=== PATIENT | female | born 1965 | race Caucasian/White ===

== ENCOUNTER 2021-02-23 13:27 | Outpatient (REF) | payer OTHER, SELFPAY ==
--- NOTE | ~2021-02-23 | US_ITS ---
EXAMINATION: US DIAGNOSTIC ULTRASOUND BREAST, LEFT CLINICAL INFORMATION: Pain beneath the nipple. COMPARISON: Mammography of same day. TECHNIQUE: Ultrasound of the breast is performed with real-time martines scale imaging and color Doppler. FINDINGS: There is no focal suspicious finding. There is no solid mass, architectural abnormality, duct ectasia, or edema in the soft tissue planes. Results are discussed with the patient at time of visit. US/US breast LT limited IMPRESSION: No specific ultrasound findings to suggest malignancy. ASSESSMENT: BI-RADS 1: Negative RECOMMENDATION: Routine annual mammography screening due in 12 months. This patient's information was entered into a reminder system with a target due date for their next mammogram.
--- NOTE | ~2021-02-23 | MM_ITS ---
EXAMINATION: MM DIAGNOSTIC DIGITAL BREAST TOMOSYNTHESIS, bilateral Bilateral targeted breast ultrasound CLINICAL INFORMATION: Bilateral breast pain beneath the nipple The lifetime risk of breast cancer based on the Tyrer-Cuzick Model is 4.5%. COMPARISON: Mammography: August 30, 2018 and studies dating back to May 13, 2009 TECHNIQUE: Digital breast tomosynthesis is performed in both the craniocaudal and mediolateral oblique views along with computer-aided detection (CAD). Synthesized 2D images are generated from the tomosynthesis. Bilateral targeted breast ultrasound FINDINGS: There are scattered areas of fibroglandular density (ACR BI-RADS breast composition Category b). There are no significant masses, abnormal calcifications, or other abnormalities. Bilateral targeted breast ultrasound did not demonstrate any abnormal cystic or solid masses. No region of abnormal distal sound shadowing appreciated. Results are discussed with the patient at time of visit. MM/MM tomosynthesis diagnostic BI IMPRESSION: No specific mammographic or ultrasound findings to suggest malignancy. ASSESSMENT: BI-RADS 1: Negative RECOMMENDATION: Routine annual mammography screening due in 12 months. This patient's information was entered into a reminder system with a target due date for their next mammogram.
--- NOTE | ~2021-02-23 | US_ITS ---
EXAMINATION: US DIAGNOSTIC ULTRASOUND BREAST, RIGHT CLINICAL INFORMATION: Breast pain beneath the nipple. COMPARISON: Mammography of same day. TECHNIQUE: Ultrasound of the breast is performed with real-time martines scale imaging and color Doppler. FINDINGS: There is no focal suspicious finding. There is no solid mass, architectural abnormality, duct ectasia, or edema in the soft tissue planes. Results are discussed with the patient at time of visit. US/US breast RT limited IMPRESSION: No specific ultrasound findings to suggest malignancy. ASSESSMENT: BI-RADS 1: Negative RECOMMENDATION: Routine annual mammography screening due in 12 months. This patient's information was entered into a reminder system with a target due date for their next mammogram.
== END 2021-02-23 13:28 | disposition home or self-care (01) ==
LOC: HO.MAMMO 13:27
PROVIDERS: PCP Internal Medicine; Visit Provider Registered Nurse
DX: N64.4 Mastodynia (principal)
CPT/HCPCS: 76642; 77062; 77066

== ENCOUNTER 2022-02-28 14:41 | Outpatient (REF) | payer OTHER, SELFPAY ==
--- NOTE | ~2022-02-28 | MM_ITS ---
EXAMINATION: MM SCREENING DIGITAL BREAST TOMOSYNTHESIS, BILATERAL CLINICAL INFORMATION: Screening. Asymptomatic. The lifetime risk of breast cancer based on the Tyrer-Cuzick Model is 4.4%. COMPARISON: Mammography: February 23, 2021 and studies dating back to September 18, 2013 TECHNIQUE: Digital breast tomosynthesis is performed in both the craniocaudal and mediolateral oblique views along with computer-aided detection (CAD). Synthesized 2D images are generated from the tomosynthesis. FINDINGS: There are scattered areas of fibroglandular density (ACR BI-RADS breast composition Category b). There are no significant masses, abnormal calcifications, or other abnormalities. MM/MM tomosynthesis screening BI IMPRESSION: No significant changes from prior exam. ASSESSMENT: BI-RADS 1: Negative RECOMMENDATION: Routine annual mammography screening. This patient's information was entered into a reminder system with a target due date for their next mammogram.
== END 2022-02-28 14:42 | disposition home or self-care (01) ==
LOC: HO.MAMMO 14:41
PROVIDERS: PCP Internal Medicine; Visit Provider Registered Nurse
DX: Z12.31 Encounter for screening mammogram for malignant neoplasm of breast (principal)
CPT/HCPCS: 77063; 77067

== ENCOUNTER 2023-03-06 12:33 | Outpatient (REF) | payer OTHER, SELFPAY ==
--- NOTE | ~2023-03-06 | MM_ITS ---
EXAMINATION: MM SCREENING DIGITAL BREAST TOMOSYNTHESIS, BILATERAL CLINICAL INFORMATION: Screening. Asymptomatic. COMPARISON: Mammography: This study is compared with prior exams dating back to 2016. TECHNIQUE: Digital breast tomosynthesis is performed in both the craniocaudal and mediolateral oblique views along with computer-aided detection (CAD). Synthesized 2D images are generated from the tomosynthesis. FINDINGS: There are scattered areas of fibroglandular density (ACR BI-RADS breast composition Category b). There are no significant masses, abnormal calcifications, or other abnormalities. There is a tissue marker present in the right breast from prior benign percutaneous biopsy. MM/MM tomosynthesis screening BI IMPRESSION: No mammographic evidence of malignancy. ASSESSMENT: BI-RADS BI-RADS 2 - Benign Findings RECOMMENDATION: Routine annual mammography screening. 1 year F/U This examination should not preclude the clinical evaluation of a suspicious palpable abnormality. This patient's information was entered into a reminder system with a target due date for their next mammogram.
== END 2023-03-06 12:34 | disposition home or self-care (01) ==
LOC: HO.MAMMO 12:33
PROVIDERS: PCP Internal Medicine; Visit Provider Internal Medicine
DX: Z12.31 Encounter for screening mammogram for malignant neoplasm of breast (principal)
CPT/HCPCS: 77063; 77067

== ENCOUNTER → 2023-03-06 12:45 | Outpatient (BNV) | payer OTHER, SELFPAY | PROVIDERS: PCP Internal Medicine; Visit Provider Radiology Diagnostic Radiology | DX: Z12.31 Encounter for screening mammogram for malignant neoplasm of breast (principal) | CPT/HCPCS: 77063; 77067 ==

== ENCOUNTER 2024-08-19 11:50 | Outpatient (REF) | payer OTHER, SELFPAY ==
--- OUTSIDE RECORDS SUMMARY | 2024-08-19 14:18 | XMS_ITS ---
Author Organization [facility] Address [address] [place] [address] Care Team Providers Care Rapid Outsole Stitcher Name Role Phone Bernard Nichols MD Primary Care Provider Juanis Jones [phone] REASON FOR VISIT cx appt 01/07 Encounters Encounter Location Date Provider Diagnosis [facility] [address] [place] [address] 01/03/2024 Juanis Rojas Plan Of Treatment No Information Progress Notes * Juanita WALKERDOB:[birth year] (58 yo F)Acc No.[id number]:01/03/2024 Patient:?Juanita Walker :1965???Age:58 Y???Sex:Female Address:[address] [place] [address], [place], [address] * true * Date:? Generated for Printi elizabeth/Jessi/eTransmitting on:?08/19/2024 02:18 PM EDT
--- OUTSIDE RECORDS SUMMARY | 2024-08-19 14:19 | XMS_ITS | Clinical Summary ---
Author Organization [facility] Address [address] [place] [address] Care Team Providers Care Mason Apprentice Name Role Phone Unavailable Primary Care Provider Unavailabl e Social History Tobacco Use Types Packs/Day Years Used Date Smoking Tobacco: Never Assessed Sex and Gender Information Value Date Recorded Sex Assigned at Not on file Gender Identity Not on file Sexual Orientation Not on file Plan of Treatment Health Maintenance Due Date Last Done Comments Hepatitis C Screening 1965 COVID-19 Vaccine (#1) 1965 Depression Screening 1975 Preventative Health Evaluation 1981 Cervical Cancer Screening (Pap Smear) 1984 Colon Cancer Screening (Colonoscopy) 2008 Breast Cancer Screening (Mammogram) 2013 Shingrix-Zoster Vaccine (1 o f 2) 2013 DTap / Tdap / Td (2 - Td or Tdap) 08/30/2023 08/29/2013, 04/30/1995 Influenza Vaccine (#1) 2023 02/07/2019 RSV Adult > 60+ Yrs or (1 - 1-dose 75+ series) 2038 Pneumococcal Vaccine Aged Out 02/07/2019 No long er eligible based on patient's age to complete this topic Hepatitis B Vaccines Aged Out No long er eligible based on patient's age to complete this topic RSV Ped < 20 months Aged Out No longe r eligible based on patient's age to complete this topic
--- OUTSIDE RECORDS SUMMARY | 2024-08-19 14:19 | XMS_ITS | Patient Health Record ---
Author Organization [facility] Address [address] [place] [address] Care Team Providers Care Fitter'S Assistant Name Role Phone Bernard Nichols MD Primary Care Provider Juanis Jones Unavailable [phone] Allergies Allergen (clinical drug ingredient) Drug/Non Drug Allergy documented on EMR Reaction Allergy Type Onset Date Status Penicillin hives Drug Allergy Active Reason For Referral No Information Medications Medication SIG (Take, Route, Frequency, Duration) Notes Start Date End Date Status ASO Ankle/Foot Stablizing AFO As directed Wear Daily for as needed 09/04/2023 Active Ozempic Active Therapeutic Multivitamin 1 table 2x day Active Niacin 100 MG 1 tablet with food Orally Once a day Active Physical Therapy . . . 2-3x/week for 3-4 weeks 09/04/2023 Active metFORMIN HCl 1000 MG 1 tablet with a me al Orally Once a day Active Cholecalciferol-Vitamin C 5,000 Unit Active Ezetimibe 10 MG 1 tablet Orally Once a day Active Immunizations Vaccine Route Administration Date Status Comme nts Influenza Unknown 02/09/2023 Administered Social History Tobacco Use: Social History Observation Description Date Details (start date - stop date) Never Smoker NA - NA Tobacco Use/Smoking Question Answer Notes Are you a: nonsmoker Additional Findings: Tobacco Non-User Current no n-smoker Alcohol Screen Question Answer Notes Did you have a drink containing alcohol in the p ast year? Yes Points 0 Interpretation Negative Tobacco use other than smoking: Question Answer Notes Are you an other tobacco user? No Problems Problem Type SNOMED Code ICD Code Onset Dates Problem Status W/U Status Risk Notes Problem [id number] Type 2 diabetes mellitus without complication, without long-term current use of insulin (E11.9) Active confirmed Vital Signs Height 5 ft 0 in in 10/15/2023 Weight 153 lbs 10/15/2023 BMI 29.88 kg/m2 10/15/2023 Encounters Encounter Location Date Provider Diagnosis [address] [address] 09/04/2023 Juanis Perica Pain in left foot M79.672 ; Posterior tibial tendinitis of left lower extremity M76.822 ; Hypertrophy of bone, left ankle and foot M89.372 ; Flat foot [pes planus] (acquired), left foot M21.42 and Type 2 diabetes mellitus without complication, without long-term current use of insulin E11.[address] [address] 10/15/2023 Juanis Perica Pain in left foot M79.672 ; Posterior tibial tendinitis of left lower extremity M76.822 ; Hypertrophy of bone, left ankle and foot M89.372 ; Flat foot [pes planus] (acquired), left foot M21.42 and Type 2 diabetes mellitus without complication, without long-term current use of insulin E11.[address] [address] 01/03/2024 Juanis Rojas Assessments Encounter Date Diagnosis (ICD Code) Assessment Notes Treatment Notes Treatment Clinical Notes Section Notes 09/04/2023 Pain in left foot (ICD-10 - M79.672) 09/04/2023 Posterior tibial tendinitis of left lower extremity (ICD-10 - M76.822) 10/15/2023 Pain in left foot (ICD-10 - M79.672) 10/15/2023 Posterior tibial tendinitis of left lower extremity (ICD-10 - M76.822) 09/04/2023 Hypertrophy of bone, left ankle and foot (ICD-10 - M89.372) 09/04/2023 Flat foot [pes planus] (acquired), left foot (ICD-10 - M21.42) 10/15/2023 Hypertrophy of bone, left ankle and foot (ICD-10 - M89.372) 10/15/2023 Flat foot [pes planus] (acquired), left foot (ICD-10 - M21.42) 09/04/2023 Type 2 diabetes mellitus without complication, without long-term current use of insulin (ICD-10 - E11.9) 10/15/2023 Type 2 diabetes mellitus without complication, without long-term current use of insulin (ICD-10 - E11.9) Plan Of Treatment Pending Test Test Name Order Date X ray : Foot, left 3V 09/04/2023 Insurance Providers Payer Name Payer Address Payer Phone Subscriber Number Group Number Insured Name Patient Relationship to Insured Coverage Start Date Coverage End Date [facility] [id number] [address] [address] [place], [place] [id number] Thuan Walker Spouse - patient is the spouse of the insured Medical (General) History Medical History History ICD Code Back,Hip,and Knee pain CAD (Cholesterol) Diabetic Lyme disease Measles Mumps Chicken pox Joint implants/screws Transfusions Surgical History Surgery Date(Month/Year) hip replacement About 15 yrs
--- OUTSIDE RECORDS SUMMARY | 2024-08-19 14:19 | XMS_ITS ---
Author Organization [facility] Address [address] [place] [address] Care Team Providers Care Tire Man Name Role Phone Simone LINDA, Bernard Primary Care Provider Juanis Jones [phone] Encounters Encounter Location Date Provider Diagnosis [facility] [address] [place] [address] 01/08/2024 Juanis Rojas Plan Of Treatment No Information Progress Notes * DENISE JuanitaDOB:[birth year] (59 yo F)Acc No.[id number]:01/08/2024 Progress Note Patient:Juanita WHITLOCK Provider:?Juanis Rojas DPM :1965???Age:58 Y???Sex:Female D ate:01/08/2024 Address:[address] [place] [address], [place], [place] Pcp:Bernard Nichols MD Subjective: * Chief Complaints: * ??? * Medical History:? Objective: * Vitals:? Assessment: Plan: * Treatment: * Images: * The named appointment provid er may or may not be the originator of this progress note, and it is not deemed complete until electronically signed by the appointment provider. Sign off status: Pending * Provider:?Juanis Rojas DPM Date:?01/2024 Generated for Viviana johnson/Jessi/eTransmitting on:?08/19/2024 02:19 PM EDT
--- OUTSIDE RECORDS SUMMARY | 2024-08-19 14:19 | XMS_ITS ---
Author Organization [facility] Address [address] [place] [address] Care Team Providers Care Chlorine Cells Operator Name Role Phone Simone LINDA, Bernard Primary Care Provider Juanis Jones [phone] REASON FOR VISIT R/S per D 01/07/23 Encounters Encounter Location Date Provider Diagnosis [facility] [address] [place] [address] 01/02/2024 Juanis Rojas Plan Of Treatment No Information Progress Notes * Juanita WALKERDOB:[birth year] (59 yo F)Acc No.[id number]:01/02/2024 Progress Note Patient:?LENNIEKARENYAMILETNORMANTinoam Provider:?Juanis Rojas DPM :1965???Age:58 Y???Sex:Female D ate:01/02/2024 Address:[address] [place] [address], [facility] Pcp:Bernard Nichols MD Subjective: * Chief Complaints: * ???1. R/S per D 01/07/23. * Medical History:? Objective: * Vitals:? Assessment: Plan: * Treatment: * Images: * The named appointment provid er may or may not be the originator of this progress note, and it is not deemed complete until electronically signed by the appointment provider. Sign off status: Pending * Provider:?Juanis Rojas DPM Date:?07/2023 Generated for Viviana johnson/Jessi/Antonette on:?08/19/2024 02:18 PM EDT
== END 2024-08-19 11:51 | disposition home or self-care (01) ==
LOC: HO.MAMMO 11:50
PROVIDERS: PCP Internal Medicine; Visit Provider Internal Medicine
DX: Z12.31 Encounter for screening mammogram for malignant neoplasm of breast (principal)
CPT/HCPCS: 77063; 77067

== ENCOUNTER → 2024-08-19 12:00 | Outpatient (BNV) | payer OTHER, SELFPAY | PROVIDERS: PCP Internal Medicine; Visit Provider Internal Medicine | DX: Z12.31 Encounter for screening mammogram for malignant neoplasm of breast (principal) | CPT/HCPCS: 77063; 77067 ==

== ENCOUNTER 2025-01-20 10:08 | Outpatient (AMB) | payer OTHER, SELFPAY ==
--- OUTSIDE RECORDS SUMMARY | 2024-01-02 10:30 | XMS_ITS ---
Author Organization [facility] Address [address] [place] [address] Care Team Providers Care Manager Psychiatry Name Role Phone Simone LINDA, Bernard Primary Care Provider Juanis Jones [phone] REASON FOR VISIT R/S per D 01/07/23 Encounters Encounter Location Date Provider Diagnosis [address] [address] 01/02/2024 Juanis Rojas Plan Of Treatment No Information Progress Notes * Juanita WALKERDOB:[birth year] (59 yo F)Acc No.[id number]:01/02/2024 Progress Note Patient: Juanita GREENE Provider: Alexus Rojas DPM :1965 A ge:58 Y S ex:Female Date:01/02/2024 Address:[address] [place], [place] [id number] Pcp:Bernard Nichols MD Subjective: * Chief Complaints: * 1 . R/S per D 01/07/23. * Medical History: Objective: * Vitals: Assessment: Plan: * Treatment: * Images: * The named appointment provid er may or may not be the originator of this progress note, and it is not deemed complete until electronically signed by the appointment provider. Sign off status: Pending * Provider: Alexus Rojas DPM Date: 0 01/02/2024 Generated for Viviana johnson/Jessi/Amayaitting on: 0 01/20/2025 12:20 PM EDT
--- OUTSIDE RECORDS SUMMARY | 2024-01-08 09:30 | XMS_ITS ---
Author Organization [facility] Address [address] [place] [address] Care Team Providers Care Telecommunication Systems Designer Name Role Phone Simone LINDA, Bernard Primary Care Provider Juanis Jones [phone] Encounters Encounter Location Date Provider Diagnosis [facility] [address] [place] [address] 01/08/2024 Juanis Rojas Plan Of Treatment No Information Progress Notes * Juanita WALKERDOB:[birth year] (59 yo F)Acc No.[id number]:01/08/2024 Progress Note Patient: Juanita GREENE Provider: Alexus Rojas DPM :1965 A ge:58 Y S ex:Female Date:01/08/2024 Address:[address] [place] [address], [id number] Pcp:Bernard Nichols MD Subjective: * Chief Complaints: * * Medical History: Objective: * Vitals: Assessment: Plan: * Treatment: * Images: * The named appointment provid er may or may not be the originator of this progress note, and it is not deemed complete until electronically signed by the appointment provider. Sign off status: Pending * Provider: Alexus Rojas DPM Date: 01/08/2024 Generated for Viviana johnson/Jessi/eTransmitting on: 01/20/2025 12:20 PM EDT
--- NOTE | 2025-01-20 10:14 | A.OFFVIS_ITS ---
Vital Signs 01/20/25 10:19 Height 5 ft 1 in Weight 163 lb BMI 30.8 BP 136/72 Blood Pressure Location Rt brachial Position Sitting Pulse 68 Pulse Source Pulse Oximeter Pulse Oximetry (%) 98 Oxygen Delivery Method Room Air Intake Visit Reasons: colo screening Intake Note: New pt for recall colo screening. Pt believes her last colo was ~ 10 years ago via [facility]. No records found. CC: Pt denies any GI sx or concerns at this time. Diesel Technology Instructor Required: No Accompanied by: Self / Same As Patient Allergies penicillin G Allergy (Unknown, Verified 01/20/25 10:16) Unknown HPI HPI colo screening: Details: 59 year old? female with past medical history of diabetes, hypercholesteremia,, hypertension, and anxiety, depression is here today for pre colonoscopy screening.? Patient was sent to us by her PCP.? Last colonoscopy over 10 years ago.? Patient denies any gastrointestinal symptoms in the past or at present.? Denies any personal or family history of gastrointestinal disease, colon polyps, or CRC.? Denies history of difficulty with sedation or anesthesia in the past.? Negative for history of sleep apnea.? Denies any history of cardiac, renal, pulmonary, or hepatic disease.?? No history of infectious? diseases like hepatitis A, B, C, HIV or tuberculosis.? Patient is not on any anticoagulation [facility] Medical History (Updated 01/15/25 @ 11:34 by Ronak Loo [facility]) Hyperlipidemia Nocturia New daily persistent headache Type 2 diabetes mellitus with polyneuropathy Anxiety and depression Review of Systems Const Denies weight gain and Denies weight loss ENT Reports no additional complaints, Denies dysphagia and Denies odynophagia Card Reports no additional complaints Resp Reports no additional complaints GI Denies abdominal pain, Denies belching, Denies melena, Denies bloating, Denies change in bowel habits, Denies dysphagia, Denies excessive flatus, Denies dyspepsia, Denies heartburn, Denies diarrhea, Denies loose stools, Denies nausea, Denies odynophagia and Denies vomiting Musc Reports no additional complaints Neuro Reports no additional complaints Psych Reports no additional complaints Endo Reports no additional complaints Physical Exam Const General: healthy appearing, no acute distress and well developed Nutritional Appearance: well nourished and obese Orientation/consciousness: patient oriented x3 Resp Effort & Inspection: normal respiratory effort, able to speak in complete sentences, no tracheal deviation and symmetric chest movement Auscultation: clear to auscultation bilaterally Cardio Rate: regular rate GI Inspection: Yes normal to inspection, No distended and Yes obesity Palpation (GI): Soft to palpation, not firm, nontender and No hepatosplenomegaly present Auscultation: normal bowel sounds General: Yes no CVA tenderness Back/Spine/Pelvis Back: no CVA tenderness Skin General skin exam: elasticity normal, turgor normal and dry skin Neuro General: patient oriented x3 Psych Appearance: grossly normal Mental Status: mental status grossly normal Assessment & Plan Assessment & Plan (1) Screen for colon cancer: Code(s): Z12.11 - Encounter for screening for malignant neoplasm of colon Plan Patient denies any GI, cardiac or respiratory symptoms.? Denies any issues with anesthesia in the past.? Denies any history of sleep apnea.? No history infectious diseases in the past or present.? Not on any anticoagulation therapy.? No family or personal history of colon cancer or polyps.? Patient denies melena, hematochezia, unintentional weight loss or ribbon like stools.? Discussed at length the pre-procedure,? prep, diet & medications as well as what to expect prior, during and after the procedure.?? Stressed the importance of good bowel prep.? Recommended the use of Vaseline or Calmoseptine OTC & baby wipes with bowel movements to promote comfort.? ?Patient verbalizes understanding and agrees to plan of care.? She was given the opportunity to ask questions and all questions answered.? We will see her after the procedure.? Orders: Referrals GI Procedure Notification Z12.11 - Encounter for screening for malignant neoplasm of colon Medications: New bisacodyl (Dulcolax (bisacodyl)) take 4 tabs at noon the day before your colonoscopy 20 mg (4 x 5 mg) PO ONCE 4 tabs 0RF constipation 1 day Z12.11 - Encounter for screening for malignant neoplasm of colon polyethylene glycol 3350 (Miralax) As directed by gastroenterology department at [facility] 238 grams PO ONCE 238 grams 0RF Z12.11 - Encounter for screening for malignant neoplasm of colon Coding Level of Care Code New Pt Level 3 (42801) Diagnoses Screen for colon cancer Z12.11 Time Spent (min) 40 Comment 30 minutes spent with patient and additional 10 minutes spent reviewing her records
[2025-01-20 10:19] VITALS: BP 136/72; PULSE 68; O2SAT 98; BMI 30.8
--- OUTSIDE RECORDS SUMMARY | 2025-01-20 12:20 | XMS_ITS | Patient Health Record ---
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 Name Role Phone Bernard Nichols MD Primary Care Provider Juanis Jones Unavailable [phone] Allergies Allergen (clinical drug ingredient) Drug/Non Drug Allergy documented on EMR Reaction Allergy Type Onset Date Status Penicillin hives Drug Allergy Active Reason For Referral No Information Medications Medication SIG (Take, Route, Frequency, Duration) Notes Start Date End Date Status ASO Ankle/Foot Stablizing AFO As directed Wear Daily; Duration: as needed 09/04/2023 Active Ozempic Active Therapeutic Multivitamin 1 table 2x day Active Niacin 100 MG 1 tablet with food Orally Once a day Active Physical Therapy . . . 2-3x/week; Duration: 3-4 weeks 09/04/2023 Active metFORMIN HCl 1000 [...] Problem Status W/U Status Risk Notes Problem Type II diabetes mellitus without complication (974523301) Type 2 diabetes mellitus without complication, without long-term current use of insulin (E11.9) Active confirmed Plan Of Treatment Pending Test Test Name Order Date X ray : Foot, left 3V 09/04/2023 Insurance Providers Payer Name Payer Address Payer Phone Subscriber Number Group Number Insured Name Patient Relationship to Insured Coverage Start Date Coverage End Date [facility]-[address] [address] [address] [place] [address] [phone] [id number] Thuan Walker Spouse - patient is the spouse of the insured Medical (General) History Medical History History ICD Code Back,Hip,and Knee pain CAD (Cholesterol) Diabetic Lyme disease Measles Mumps Chicken pox Joint implants/screws Transfusions Surgical History Surgery Date(Month/Year) hip replacement About 13 yrs
--- OUTSIDE RECORDS SUMMARY | 2025-01-20 12:21 | XMS_ITS | Clinical Summary ---
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 AM EDT us Santos James DO LAB BLOOD ORDERABLES Final Resul t Performing Organization Address [facility] de Phone Number [address] [address] * MAMMOGRAPHY FOR RESULT ENTRY ONLY (08/22/2024 2:58 PM EDT) us Historical Provider HEALTH MAINTENANCE Edited Result - Final Performing Organization Address [facility] de Phone Number EXTERNAL NON-INTERFACED REF LAB * Microalbumin/creatinine ratio, random urine (04/09/2024 8:49 AM EST) URINE MICROALBUMIN 2.0 0 - 2.3 mg/dL [facility] URINE CREATININE 111 mg/dL [facility] MICROALB/CRE RATIO 18.0 0 - 20 mg/g Cre [facility] Urine (Urine) 04/09/2024 8:4 9 AM EST 04/09/2024 8:54 AM EST us Bernard Nichols MD URINE ORDERABLES Final Result Performing Organization Address [facility] de Phone Number [address] [address] * HM DIABETES EYE EXAM FOR RESULT ENTRY ONLY (02/25/2024) EYE EXAM 1 yr recall Historical Provider HEALTH MAINTENANCE Final Result * Hepatitis C antibody, qualitative (02/20/2020 3:01 PM EDT) HCV NON-REACTIV E NON-REACTI VE [facility] Blood 02/20/2020 3:01 PM EDT 02/20/2020 3:10 PM EDT Bernard Nichols MD LAB BLOOD ORDERABLES Final Re sult Performing Organization Address City/State/[facility] Co de Phone Number [address] [address] * COLONOSCOPY FOR RESULT ENTRY ONLY (01/23/2014) Colonoscopy 10 yr recall Historical Provider HEALTH MAINTENANCE Final Result * PAP SMEAR FOR RESULT ENTRY ONLY (09/11/2013) Pap smear NILM, HPV not cotested Historical Provider HEALTH MAINTENANCE Final Result from Last 3 Months or Most Recently Relevant to Health Maintenance Insurance [facility] POS POS POS POS POS POS Care Teams Assistant Prosecuting Attorney Relationship Specialty Start Date End Date Bernard Nichols MD [address] [place] [address] [email or web address] PCP - General 05/03/17 Bernard Nichols MD [address] [place] [address] [email or web address] Historical LMR Provider 02/12/17 João Matt DO [address] [place] [address] Internal Medicine 02/20/20 Brett Villar MD [address] [place] [address] [email or web address] Rheumatology 02/26/20 Mello Walker PA [address] [place] [address] [email or web address] Rheumatology 02/27/20 Additional Source Comments The information contained in this document represents components of the legal health record. It is not the complete legal health record.[facility]
--- OUTSIDE RECORDS SUMMARY | 2025-01-20 12:21 | XMS_ITS | Encounter Summary ---
Author Organization [facility] Address [facility] [employer] [facility] [address] [place] [address] Phone Care Team Providers Care Log Manager Name Role Phone Bernard Nichols MD Unavailable Gricelda Pulliam AP OPERATOR Unavailable [phone] Sonia Hoyt AP OPERATOR Unavailable [phone] Bernard Nichols MD Primary Care Provider João Matt DO Unavailable Brett Villar MD Unavailable Mello Walker Unavailable Reason for Referral * MRI/CAT Scan - Closed Specialty Diagnoses / Procedures Referred By Contac t Referred To Contact Diagnoses Palpitations Procedures MCT (Mobile Cardiac Telemetry) Mayra Elena MD Phone: tel: fax: mailto:[email or web address] Referral ID Status Reason Start Date Expiration Date Visits Re quested Visits Authorized [id number] Closed 02/03/2019 02/03/2020 1 1 Encounter Details Date Type Department Care Team (Late st Contact Info) Description 02/03/2019 Ancillary Orders [facility] [address] [place] [address] 3rd Floor, [address] [place], [place] [phone] Mayra Elena MD [address] [place] [address] [email or web address] [email or web address] Social History Tobacco Use Types Packs/Day Years Used Date Smoking Tobacco: Never Smokeless Tobacco: Never Alcohol Use Standard Drinks/Week Comments Yes 3 (1 standard drink = 0.6 oz pur e alcohol) Comments Unknown Sex and Gender Information Value Date Recorded Sex Assigned at Female 09/08/2021 8:32 PM EDT Legal Sex Female 9:44 PM EDT Gender Identity Female 09/08/2021 8:32 PM EDT Sexual Orientation Not on file documented as of this encounter Plan of Treatment Upcoming Encounters Date Type Department Care Team (Late st Contact Info) Description 05/06/2025 11:30 AM EST Office Visit [facility] Internal Medicine [address] [place] [address] Bernard Nichols MD [address] [place] [address] [email or web address] 05/13/2025 11:30 AM EST Office Visit [facility] [address] [place] [address] Santos James DO [address] [place] [address] [email or web address] Scheduled Orders Name Type Priority Associated Diagnoses Orde r Schedule MCT (Mobile Cardiac Telemetry) Cardiac Monitors Routine Palpitations Expected: 10/15/2018, Expires: 04/02/2019 documented as of this encounter Visit Diagnoses Diagnosis Palpitations documented in this encounter Additional Health Concerns Infection Onset Date Last Indicated Resolved Time CoV-Risk 11/19/2023 11/19/2023 11/30/2023 1:22 AM EDT Assessment Noted Time PHQ-2 Depression Total Score: 0 06/10/19 19 4:03 PM EST documented as of this encounter Care Teams Log Manager Relationship Specialty Start Date End Date Bernard Nichols MD [address] [place] [address] [email or web address] PCP - General 05/03/17 Bernard Nichols MD [address] [place] [address] [email or web address] Historical LMR Provider 02/12/17 Gricelda Pulliam, IVETTE 21 [facility] [address] [place] [address] Historical LMR Provider 02/12/17 2 Sonia Hoyt NP 26 [facility] 6 [place] [address] [email or web address] Historical LMR Provider 02/12/17 05/07/21 João Matt DO [address] [place] [address] Internal Medicine 02/20/20 Brett Villar MD [address] [place] [address] [email or web address] Rheumatology 02/26/20 Mello Walker PA [address] [place] [address] [email or web address] 02/27/20 documented as of this encounter Additional Source Comments The information contained in this document represents components of the legal health record. It is not the complete legal health record.[facility]
--- OUTSIDE RECORDS SUMMARY | 2025-01-20 12:21 | XMS_ITS | Clinical Summary ---
Author Organization [facility] Address [address] [place] [address] Care Team Providers Care Vegetable Packer Name Role Phone Unavailable Primary Care Provider [...] Tdap) 08/30/2023 08/29/2013, 04/30/1995 Influenza Vaccine (#1) 2024 02/07/2019 RSV Adult > 60+ Yrs or [...]
== END 2025-01-20 11:04 | disposition home or self-care (01) ==
LOC: HO.HGI 10:09
PROVIDERS: PCP Internal Medicine; Visit Provider Nurse Practitioner Family
DX: Z01.818 Encounter for other preprocedural examination (principal); Z12.11 Encounter for screening for malignant neoplasm of colon
CPT/HCPCS: 99203

== ENCOUNTER 2025-02-03 06:11 | Day surgery (SDC) | payer OTHER, SELFPAY ==
--- OUTSIDE RECORDS SUMMARY | 2024-01-02 10:30 | XMS_ITS ---
Author Organization [facility] Address [address] [place] [address] Care Team Providers Care Packing House Laborer Name Role Phone Simone LINDA, Bernard Primary Care Provider Juanis Jones [phone] REASON FOR VISIT R/S per D 01/07/23 Encounters Encounter Location Date Provider Diagnosis [address] [address] 01/02/2024 Juanis Rojas Plan Of Treatment No Information Progress Notes * Juanita WALKERDOB:[birth year] (59 yo F)Acc No.[id number]:01/02/2024 Progress Note Patient: Juanita GREENE Provider: Alexus Rojas DPM :1965 A ge:58 Y S ex:Female Date:01/02/2024 Address:[address] [place], [place] [id number] Pcp:Bernard Nichols MD Subjective: * Chief Complaints: [...] DPM Date: 0 01/02/2024 Generated for Viviana johnson/Jessi/Antonette on: 0 01/21/2025 04:26 PM EDT
--- OUTSIDE RECORDS SUMMARY | 2024-01-08 09:30 | XMS_ITS ---
Author Organization [facility] Address [address] [place] [address] Care Team Providers Care Naval Engineer Name Role Phone Simone LINDA, Bernard Primary Care Provider Juanis Jones [phone] Encounters Encounter Location Date Provider Diagnosis [facility] [address] [place] [address] 01/08/2024 Juanis Rojas Plan Of Treatment No Information Progress Notes * Juanita WALKERDOB:[birth year] (59 yo F)Acc No.[id number]:01/08/2024 Progress Note Patient: Juanita GREENE Provider: Alexus Rojas DPM :1965 A ge:58 Y S ex:Female Date:01/08/2024 Address:[address] [place] [address], [id number] Pcp:Bernard Nichols MD Subjective: * Chief Complaints: [...] Date: 01/08/2024 Generated for Viviana johnson/Jessi/eTransmitting on: 01/21/2025 04:26 PM EDT
--- OUTSIDE RECORDS SUMMARY | 2025-01-21 16:27 | XMS_ITS | Clinical Summary ---
Author Organization [facility] Address [facility] [employer] [address] [address] Phone Care Team Providers Care Sliver Lapper Name Role Phone Bernard Nichols MD Unavailable [phone] Bernard Nichols MD Primary Care Provider [phone] João Matt DO Unavailable Brett Villar MD Unavailable Mello Walkre Unavailable Allergies Active Allergy Reactions Criticality Noted Date [...] ordered and she can do that at [facility] seeing that she lives in [place]. If the patient's x-ray comes back positive [...] 90 mg/dL is her normal glucose level. [id number] hemoglobin A1c today 03/16/2022 was 6.5%. 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 Aim at BS= 90-120 mg [...] of blood transfusion s as patient is Zoroastrian 06/10/2018 Overview (06/10/2018): Zoroastrian Rash and other nonspecific skin eruption 018 Overview (11/30/2017): Left buttock With small red pimple No tick seen Encounters Date Type Department Care Team Description 01/20/2025 Telephone [facility] Internal Medicine [address] [place] [address] Bernard Nichols MD TB test 10/28/2024 1:20 PM EDT Office Visit [facility] [address] [place] [address] Santos James DO Type 2 diabetes mellitus with diabetic polyneuropathy, without long-term current use of insulin (Primary Dx); Hyperlipidemia LDL goal <100 10/24/2024 8:58 AM EDT - 10/24/2024 11:59 PM EDT Hospital Encounter [facility] [address] [place] [address] Santos James DO Discharge Disposition: Home or Self Care 10/22/2024 Refill [facility] Internal Medicine [address] [place] [address] Bernard Nichols MD Medication Refill from Last [...] high school, GED, job training, learning the Italian language, technical skills, or developing parenting skills)? [...] your housing situation today? I have loli sing 04/28/2024 How many times have you move [...] Description 05/06/2025 11:30 AM EST Office Visit [facility] Internal Medicine [address] [place] [address] Bernard Nichols MD [address] [place] [address] 05/13/2025 11:30 AM EST Office Visit [facility] [address] [place] [address] Santos James DO [address] [place] [address] [email or web address] Health Maintenance [...] EDT) SODIUM 141 133 - 146 mmol/L [facility] POTASSIUM 4.8 3.3 - 5.1 mmol/L [facility] CHLORIDE 105 96 - 108 mmol/L [facility] CO2 26 21 - 35 mmol/L [facility] GLUCOSE 132(H) 70 - 99 mg/dL [facility] BUN 17 6 - 19 mg/dL [facility] CREATININE 0.50 0.5 - 1.5 mg/dL [facility] CALCIUM 9.7 8.4 - 10.3 mg/dL [facility] PHOSPHORUS 3.1 2.7 - 4.5 mg/dL [facility] ALBUMIN 4.1 3.9 - 4.8 g/dL [facility] EGFR 107 >59 mL/min/1.7 3m2 [facility] Comment:Estimated glomerular filtration rate calculated using the CKD-EPI refit equation. ANION GAP 15 10 - 20 mmol/L [facility] Blood 10/24/2024 8:58 AM EDT 10/24/2024 9:00 AM EDT [facility] BLOOD ORDERABLES Final Resul t Performing Organization Address [facility] Co de Phone Number [address] [address] * (ABNORMAL) Hemoglobin A1c (10/24/2024 8:58 AM EDT) HEMOGLOBIN A1C 6.7(H) 4.3 - 5.8 % [facility] Blood 10/24/2024 8:58 AM EDT 10/24/2024 9:00 AM EDT [facility] BLOOD ORDERABLES Final Resul t Performing Organization Address [facility] Co de Phone Number [address] [address] * (ABNORMAL) Lipid panel (10/24/2024 8:58 AM EDT) HDL 50 mg/dL [facility] Comment: Interpretation <40 mg/dL: Low HDL cholesterol (major risk factor for CHD) Greater than or equal to 60 mg/dL: High HDL cholesterol ( negative risk factor for CHD) HDL - cholesterol is affected by a number of factors, e.g. smoking, excerise, hormones, sex and age. CHOLESTEROL 159 0 - 240 mg/dL [facility] TRIGLYCERIDES 98 30 - 160 mg/dL [facility] LDL 89 50 - 129 mg/dL [facility] Comment: LDL levels in terms of risk for coronary heart disease: <100 mg/dL: Optimal 100-129 mg/dL: Near or above optimal 130-159 mg/dL: Borderline high 160-189 mg/dL: High >190 mg/dL: Very High CARDIAC RISK RATIO 3.2(L) 3.3 - 4.4 [facility] Blood 10/24/2024 8:58 AM EDT 10/24/2024 9:00 AM EDT us Santos James DO LAB BLOOD ORDERABLES Final Resul t [address] [address] * MAMMOGRAPHY FOR RESULT ENTRY ONLY (08/22/2024 2:58 PM EDT) us Historical Provider HEALTH MAINTENANCE Edited Result - Final EXTERNAL NON-INTERFACED REF LAB * Microalbumin/creatinine ratio, random urine (04/09/2024 8:49 AM EST) URINE MICROALBUMIN 2.0 0 - 2.3 mg/dL [facility] URINE CREATININE 111 mg/dL [facility] MICROALB/CRE RATIO 18.0 0 - 20 mg/g Cre [facility] Urine (Urine) 04/09/2024 8:4 9 AM EST 04/09/2024 8:54 AM EST us Bernard Nichols MD URINE ORDERABLES Final Result Performing Organization Address [facility]/ZIP Co de Phone Number [address] [address] * DIABETES EYE EXAM FOR RESULT ENTRY ONLY (02/25/2024) EYE EXAM 1 yr recall Historical Provider HEALTH MAINTENANCE Final Result * Hepatitis C antibody, qualitative (02/20/2020 3:01 PM EDT) HCV NON-REACTIV E NON-REACTI VE [facility] Blood 02/20/2020 3:01 PM EDT 02/20/2020 3:10 PM EDT Bernard Nichols MD LAB BLOOD ORDERABLES Final Re sult Performing Organization Address [facility]/ZIP Co de Phone Number [address] [address] * COLONOSCOPY FOR RESULT ENTRY ONLY (01/23/2014) Colonoscopy 10 yr recall Historical Provider HEALTH MAINTENANCE Final Result * PAP SMEAR FOR RESULT ENTRY ONLY (09/11/2013) Pap smear NILM, HPV not cotested Historical Provider HEALTH MAINTENANCE Final Result from Last 3 Months or Most Recently Relevant to Health Maintenance Insurance [facility] POS POS POS POS POS POS Care Teams Sliver Lapper Relationship Specialty Start Date End Date Bernard Nichols MD [address] [place] [address] [email or web address] PCP - General 05/03/17 Bernard Nichols MD [address] [place] [address] [email or web address] Historical LMR Provider 02/12/17 João Matt DO [address] [place] [address] Internal Medicine 02/20/20 Brett Villar MD [address] [place] [address] [email or web address] Rheumatology 02/26/20 Mello Walker PA [address] [place] [address] [email or web address] Rheumatology 02/27/20 Additional Source Comments The information contained in this document represents components of the legal health record. It is not the complete legal health record.[facility]
--- OUTSIDE RECORDS SUMMARY | 2025-01-21 16:27 | XMS_ITS | Encounter Summary ---
Author Organization [email or web address] [facility] Address [facility] [address] [place] [address] Phone Care Team Providers Care Survey Director Name Role Phone Bernard Nichols MD Unavailable [phone] Gricelda Pulliam FLUOROSCOPE OPERATOR Unavailable [phone] Sonia Hoyt FLUOROSCOPE OPERATOR Unavailable [phone] Bernard Nichols MD Primary Care Provider [phone] João Matt DO Unavailable Brett Villar MD Unavailable Mello Walker Unavailable Reason for Referral * MRI/CAT Scan - Closed Specialty Diagnoses / Procedures Referred By Contac t Referred To Contact Diagnoses Palpitations Procedures MCT (Mobile Cardiac Telemetry) Mayra Elena MD Phone: tel: fax: mailto:[email or web address] Referral ID Status Reason Start Date Expiration Date Visits Re quested Visits Authorized [id number] Closed 02/03/2019 02/03/2020 1 1 Encounter Details Date Type Department Care Team (Late st Contact Info) Description 02/03/2019 Ancillary Orders [facility] [address] [place] [address] 3rd Floor, [address] [place], [place] [phone] Mayra Elena MD [address] [place] [address] [email or web address] Palpitations Social History Tobacco Use Types Packs/Day [...] Description 05/06/2025 11:30 AM EST Office Visit [facility] Internal Medicine [address] [place] [address] Bernard Nichols MD [address] [place] [address] [email or web address] 05/13/2025 11:30 AM EST Office Visit [facility] [address] [place] [address] Santos James DO [address] [place] [address] [email or web address] Scheduled Orders Name Type Priority Associated Diagnoses [...] documented as of this encounter Care Teams Survey Director Relationship Specialty Start Date End Date Bernard Nichols MD [address] [place] [address] [email or web address] PCP - General 05/03/17 Bernard Nichols MD [address] [place] [address] [email or web address] Historical LMR Provider 02/12/17 Gricelda Pulliam, IVETTE 21 [facility] [address] [place] [address] Historical LMR Provider 02/12/17 2 Sonia Hoyt NP 26 [facility] 6 [place] [address] [email or web address] Historical LMR Provider 02/12/17 05/07/21 João Matt DO [address] [place] [address] Internal Medicine 02/20/20 Brett Villar MD [address] [place] [address] [email or web address] Rheumatology 02/26/20 Mello Walker PA [address] [place] [address] [email or web address] 02/27/20 documented as of this encounter Additional Source Comments The information contained in this document represents components of the legal health record. It is not the complete legal health record.[facility]
--- OUTSIDE RECORDS SUMMARY | 2025-01-21 16:27 | XMS_ITS | Encounter Summary ---
Author Organization [facility] Address [facility] [employer] [facility] [address] [place] [address] Phone Care Team Providers Care Driver Courier Name Role Phone Bernard Nichols MD Unavailable [phone] Bernard Nichols MD Primary Care Provider João Matt DO Unavailable [phone] Brett Villar MD Unavailable Mello Walker Unavailable Reason for Visit * Reason Onset Date Comments TB test 01/20/2025 Encounter Details Date Type Department Care Team (Late st Contact Info) Description 01/20/2025 Telephone [employer] [facility] Internal Medicine [address] [place], [place] [phone] Bernard Nichols MD [address] [place], [place] [phone] [email or web address] TB test Social History Tobacco Use Types Packs/Day Years Used Date Smoking Tobacco: Never Smokeless Tobacco: Never Alcohol Use Standard Drinks/Week Comments Yes 0 [...] high school, GED, job training, learning the Belarusian language, technical skills, or developing parenting skills)? 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 Please advise on order. documented in this encounter Plan of Treatment Upcoming Encounters Date Type Department Care Team (Late st Contact Info) Description 05/06/2025 11:30 AM EST Office Visit [facility] Internal Medicine [address] [place] [address] Bernard Nichols MD [address] [place] [address] 05/13/2025 11:30 AM EST Office Visit [facility] [address] [place] [address] Santos James DO [address] [place] [address] documented as of this encounter Visit Diagnoses Not on filedocumented in this encounter Additional Health Concerns Assessment Noted Time PHQ-9 Depression Total Score: 1 09/24/19 10:17 AM EDT PHQ-2 Depression Total Score: 0 09/24/19 10:17 AM EDT documented as of this encounter Care Teams Driver Courier Relationship Specialty Start Date End Date Bernard Nichols MD [address] [place] [address] [email or web address] PCP - General 05/03/17 Bernard Nichols MD [address] [place] [address] [email or web address] Historical LMR Provider 02/12/17 João Matt DO [address] [place] [address] Internal Medicine 02/20/20 Brett Villar MD [address] [place] [address] [email or web address] Rheumatology 02/26/20 Mello Walker PA [address] [place] [address] [email or web address] 02/27/20 documented as of this encounter Additional Source Comments The information contained in this document represents components of the legal health record. It is not the complete legal health record.[facility]
--- OUTSIDE RECORDS SUMMARY | 2025-01-21 16:27 | XMS_ITS | Patient Health Record ---
Author Organization [facility] Address [address] [place] [address] Care Team Providers Care Printing Shop Supervisor Name Role Phone Bernard Nichols MD Primary Care Provider Juanis Jones Unavailable [phone] Allergies Allergen (clinical drug ingredient) Drug/Non Drug [...] Problem Type II diabetes mellitus without complication (651714199) Type 2 diabetes mellitus without complication, without long-term current use of insulin (E11.9) Active confirmed Plan Of Treatment Pending Test Test Name Order Date X ray : Foot, left 3V 09/04/2023 Insurance Providers Payer Name Payer Address Payer Phone Subscriber Number Group Number Insured Name Patient Relationship to Insured Coverage Start Date Coverage End Date [facility]-[address] [address] [address] [place] [address] [id number] Thuan Walker Spouse - patient is the spouse of the insured Medical (General) History Medical History History ICD Code Back,Hip,and Knee pain CAD (Cholesterol) Diabetic Lyme disease Measles Mumps Chicken pox Joint implants/screws Transfusions Surgical History Surgery Date(Month/Year) hip replacement About 15 yrs
--- OUTSIDE RECORDS SUMMARY | 2025-01-21 16:27 | XMS_ITS | Clinical Summary ---
Author Organization [facility] Address [address] [place] [address] Care Team Providers Care Conduit Bender Name Role Phone Unavailable Primary Care Provider [...]
--- NOTE | 2025-01-29 09:18 | HO.ANESPROP2 ---
Documented by User: Caitie Henao NP 01/29/25 09:18 HPI - Anesthesia Eval Consult details Narrative: 59yo F for Colonoscopy Anesthesia Pre-Procedure Meds Is the patient on any of the following meds?: GLP1/DPP4 FOR[facility], [facility] Past Medical History Medical History Hyperlipidemia Nocturia New daily persistent headache Type 2 diabetes mellitus with polyneuropathy Anxiety and depression Social History Social History Patient Tobacco Use Status: Never used Tobacco Use of substances other than those prescribed or required for medical reasons: No Advance Directives: No Advance Directives Information Provided: Yes Meds Allergies Allergy/AdvReac Type Severity Reaction Status Date / Time penicillin G Allergy Unknown Unknown Verified 01/20/25 10:16 Home Medications ?Medication ?Instructions ?Recorded ?Confirmed ?Last Taken ?Type cholecalciferol (vitamin D3) 125 125 mcg PO DAILY 01/15/25 Unknown History mcg (5,000 unit) capsule escitalopram oxalate 10 mg tablet 10 mg PO DAILY 01/15/25 Unknown History (Lexapro) ezetimibe 10 mg tablet (Zetia) 10 mg PO DAILY 01/15/25 Unknown History metformin 500 mg tablet 500 mg PO DAILY 01/15/25 Unknown History therapeutic multivitamin 1 tab PO DAILY 01/15/25 Unknown History dulaglutide 1.5 mg/0.5 mL 1.5 mg subcut QWEEK 01/20/25 02/03/25 01/17/25 08:00 History subcutaneous pen injector (Trulicity) Assessment and Plan Assessment Anesthesia Assessment: Chart Reviewed Documented by User: Raphael Del Rio MD 02/03/25 07:29 HPI - Anesthesia Eval Anesthesia Pre-Procedure Meds If yes to any meds - educate patient: Pt education - increased risk of aspiration and/or euvolemic DKA and Pt education - possibility of cancelled proc at provider's discretion [facility] Past Medical History Medical History Hyperlipidemia Nocturia New daily persistent headache Type 2 diabetes mellitus with polyneuropathy Anxiety and depression Cognitive capacity: normal Functional capacity: independent ambulation Family History Family history of problems with anesthesia: No Surgical History History of Problems with Anesthesia: No Social History Social History Patient Tobacco Use Status: Never used Tobacco Use of substances other than those prescribed or required for medical reasons: No Advance Directives: No Advance Directives Information Provided: Yes Meds Allergies Allergy/AdvReac Type Severity Reaction Status Date / Time penicillin G Allergy Unknown Unknown Verified 01/20/25 10:16 Home Medications ?Medication ?Instructions ?Recorded ?Confirmed ?Last Taken ?Type cholecalciferol (vitamin D3) 125 125 mcg PO DAILY 01/15/25 Unknown History mcg (5,000 unit) capsule escitalopram oxalate 10 mg tablet 10 mg PO DAILY 01/15/25 Unknown History (Lexapro) ezetimibe 10 mg tablet (Zetia) 10 mg PO DAILY 01/15/25 Unknown History metformin 500 mg tablet 500 mg PO DAILY 01/15/25 Unknown History therapeutic multivitamin 1 tab PO DAILY 01/15/25 Unknown History dulaglutide 1.5 mg/0.5 mL 1.5 mg subcut QWEEK 01/20/25 02/03/25 01/17/25 08:00 History subcutaneous pen injector (Trulicity) Exam Exam Date and Time: 02/03/2025 Airway Mallampati Class: II TM Dist: >3cm Neck ROM: Full Loose/Missing/Broken Teeth: No Heart: normal Lungs: normal Other: in good health for screening colonoscopy Assessment and Plan Assessment Anesthesia Assessment: Anesthesia Plan Discussed Final Anesthetic Review Family History of Problems with Anesthesia: No History of Problems with Anesthesia: No NPO: Yes ASA Class: II Final Preanesthetic Review: No Changes in Pt Med Stat, Meds/Allgs Chart Reviewed, Consent Obtained/Reviewed and Anes Risks/Benef Reviewed Patient Risk: Low Procedure Risk: Low Anesthetic Plan Anesthetic Plan: MAC: Disposition: Standard PACU
[2025-02-03 06:33] VITALS: BMI 30.4
[2025-02-03 06:42] VITALS: BP 140/69; PULSE 66; RESP 16; TEMP 36.8; O2SAT 96
[2025-02-03] MEDS: Lactated Ringers 1,000 ML 100 ML IVCONT (06:42)
[2025-02-03 06:49] LABS: Glucose, Whole Blood 134 mg/dL (60-115)
--- NOTE | 2025-02-03 07:56 | MHC.SHP ---
Pre-Procedural Eval Section A - 24 Hr Update-Section A only Date of Service: 02/03/25 The patient is an INPATIENT: No The patient has been examined within 24 hours of the surgical procedure. The History & Physical has been completed within 30 days and I have reviewed it.: Yes Section B - Complete if H&P > 30 days Chief Complaint: screening Allergies: Allergies Allergy/AdvReac Type Severity Reaction Status Date / Time penicillin G Allergy Unknown Unknown Verified 01/20/25 10:16 Plan Diagnosis/Plan: Unchanged I have reviewed the history and physical and performed a pertinent physical examination on my patient. No changes have occurred unless specified. Time Spent With Patient Time: Total time managing care of this patient today ____ minutes.
--- NOTE | 2025-02-03 08:26 | P.OPN-COLO_ITS ---
Colonoscopy Operative Note Operative Note Date of Service: 02/03/25 Narrative: Procedure: Colonoscopy Indication: Screening Endoscopist: Monika Chiu MD Anesthesia Provider: Dr Del Rio Anesthesia type: MAC Instrument: Olympus [id number] Consent: Indication, risks vs benefits, and alternatives were discussed with the patient who gave written informed consent to proceed. EKG, pulse, pulse oximetry and blood pressure were monitored throughout the procedure. Please see anesthesia flowsheet. Procedure: The patient was brought to the procedure room and placed in the left lateral decubitus position. IV medications were administered by the anesthesia provider in attendance. A digital rectal exam was performed which was normal. A distal attachment cap was affixed to the tip of the colonoscope which was then inserted through the anus and advanced through the colon to the cecum at 70 cm,and terminal ileum. Appendiceal orifice and ileocecal valve were identified. Mucosa was carefully examined under high definition white light as the instrument was slowly withdrawn in a retrograde panoramic fashion. Retroflexion was performed in ascending colon and rectum. The procedure was not difficult. There were no immediate obvious complications. The quality of the prep was BBPS: 3+2+3 = adequate Withdrawal time 14 minutes. Limitations: No limitations. Findings: Mucosa: Normal to cecum and terminal ileum. Protruding lesions: * 1 sessile polyp of size 6 mm in transverse colon. Cold snare polypectomy was performed. The polyp was completely removed and retrieved. * 2 sessile polyps of size 4-5 mm in descending colon. Cold snare polypectomy was performed. The polyps were completely removed and retrieved. * 1 sessile polyp of size 2 mm in sigmoid colon. Cold snare polypectomy was performed. The polyp was completely removed and retrieved. * Largeinternal hemorrhoids without stigmata of recent bleeding. Excavated lesions: * Moderate diverticulosis of sigmoid colon. Impression: 1. Normal colon mucosa 2. Total of 4 polyps removed 3. Diverticulosis 4. Internal hemorrhoids Recommendations: - Follow path results. - Repeat colonoscopy in 3 years if polyps are adenomas.
[2025-02-03 08:28] VITALS: BP 112/59; PULSE 59; RESP 16; TEMP 36.2; O2SAT 98
[2025-02-03 08:40] VITALS: BP 136/68; PULSE 52; RESP 16; TEMP 36.2; O2SAT 98
== END 2025-02-03 09:51 | disposition home or self-care (01) ==
PROVIDERS: PCP Internal Medicine; Visit Provider Internal Medicine
PROC: 0DJD8ZZ Inspection of Lower Intestinal Tract, Via Natural or Artificial Opening Endoscopic (ICD-10-PCS; CPT 45378; principal; 2025-02-03 07:30)
DX: Z12.11 Encounter for screening for malignant neoplasm of colon (principal); D12.3 Benign neoplasm of transverse colon; D12.4 Benign neoplasm of descending colon; D12.5 Benign neoplasm of sigmoid colon; K57.30 Diverticulosis of large intestine without perforation or abscess without bleeding; K64.8 Other hemorrhoids; E11.42 Type 2 diabetes mellitus with diabetic polyneuropathy; E78.00 Pure hypercholesterolemia, unspecified; I10 Essential (primary) hypertension; F41.8 Other specified anxiety disorders; R35.1 Nocturia; R51.9 Headache, unspecified; Z79.84 Long term (current) use of oral hypoglycemic drugs; Z79.85 Long-term (current) use of injectable non-insulin antidiabetic drugs; Z79.899 Other long term (current) drug therapy; Z88.0 Allergy status to penicillin
CPT/HCPCS: 45385; 82947; 88305; J2003; J2704; J3010

== ENCOUNTER → 2025-02-03 06:11 | Outpatient (BNV) | payer OTHER, SELFPAY | PROVIDERS: PCP Internal Medicine; Visit Provider Internal Medicine | DX: Z12.11 Encounter for screening for malignant neoplasm of colon (principal); D12.3 Benign neoplasm of transverse colon; D12.4 Benign neoplasm of descending colon; D12.5 Benign neoplasm of sigmoid colon; K57.30 Diverticulosis of large intestine without perforation or abscess without bleeding; K64.8 Other hemorrhoids | CPT/HCPCS: 45385 ==